=== PATIENT | female | born 1995 | race Caucasian/White ===

== ENCOUNTER 2024-06-19 07:34 | Inpatient (IN) | payer BC ==
[2024-06-19] MEDS ORDERED: hydrALAZINE 20 MG/ML VIAL SLOW IVP PRN ×2 (08:22→20:03)
[2024-06-19] MEDS ORDERED: Promethazine HCl 25 MG/ML VIAL IM PRN (08:22)
[2024-06-19] MEDS ORDERED: Ondansetron PF 4 MG/2 ML Vial IVP PRN ×2 (08:22→20:03)
[2024-06-19] MEDS ORDERED: Lidocaine 1% (PF) 30 ML VIAL SC PRN (08:22)
[2024-06-19 08:54] LABS: Hematocrit 36.7 % (34.9-44.5); Mean Corpuscular HGB CONC 32.7 g/dL (32.0-36.0); Mean Corpuscular Hemoglobin 28.3 pg (27.0-33.0); Mean Corpuscular Volume 86.6 fL (81.6-98.3); Mean Platelet Volume 11.1 fL (7.4-10.4); Platelet Count 222 10x3/uL (150-450); RBC Distribution Width 13.7 % (11.5-14.5); Red Blood Cell (RBC) Count 4.24 10x6/uL (3.90-5.03); White Blood Cell (WBC) Count 11.97 10x3/uL (3.5-10.5)
[2024-06-19] MEDS: Oxytocin 30 units/NS 500 ML 500 ML IV SCH (09:20)
[2024-06-19] MEDS ORDERED: VANCOMYCIN 1.5 GM, Admixture Fee 1 EACH in Sodium Chloride 0.9% 500 ML IVPB SCH (09:30)
[2024-06-19 09:40] LABS: HBsAg Index 0.26 S/CO (0-0.99); Hep B Surf Ag - L&D Non-Reactive S/CO (NonReactive)
[2024-06-19 09:42] LABS: Syphilis Antibody Nonreactive (Nonreactive); Syphilis Antibody Index 0.03 S/CO (<1.00 Non-Reactive)
[2024-06-19] MEDS: ADMIXTURE FEE IVPB SCH (10:30)
[2024-06-19] MEDS: SODIUM CHLORIDE IVPB SCH (10:30)
[2024-06-19] MEDS: VANCOMYCIN IVPB SCH (10:30)
[2024-06-19] MEDS: Ibuprofen 800 MG TAB PO PRN (18:04)
[2024-06-19] MEDS: HYDROcodone/Acetaminophen 5/325 mg Tablet PO PRN ×2 (18:05→22:04)
[2024-06-19] MEDS: fentaNYL/Ropivacaine Epidural 0 ML ONE (18:10)
[2024-06-19] MEDS ORDERED: Milk Of Magnesia 30 ML UDCUP PO PRN (20:03)
[2024-06-19] MEDS ORDERED: Lanolin Ointment 7 GM TUBE TOP PRN (20:03)
[2024-06-19] MEDS ORDERED: diphenhydrAMINE 25 MG CAP PO PRN (20:03)
[2024-06-19] MEDS ORDERED: Bisacodyl 10 MG SUPP PR PRN (20:03)
[2024-06-19] MEDS ORDERED: Oxytocin 30 units/NS 500 ML 500 ML IV SCH (20:03)
[2024-06-19] MEDS ORDERED: Preparation H Ointment 28 GM TUBE PR PRN (20:03)
[2024-06-19] MEDS: Docusate 100 MG CAP PO SCH (21:52)
[2024-06-20] MEDS: Ibuprofen 800 MG TAB PO SCH (02:07)
[2024-06-20] MEDS: Benzocaine-Menthol 82.5 ML CAN TOP PRN (08:22)
[2024-06-20] MEDS: Ferrous Sulfate 325 MG TAB PO SCH (08:22)
[2024-06-20] MEDS: Prenatal Vitamin 1 TAB PO SCH (08:22)
[2024-06-20] MEDS: HYDROcodone/Acetaminophen 5/325 mg Tablet PO PRN (08:23)
[2024-06-20] MEDS: Boostrix 0.5 ML (Tdap) VIAL (>/=7 yrs of age) IM ONE (19:28)
[2024-06-21 08:39] VITALS: BP 109/57; TEMP 98.4
== END 2024-06-21 10:30 | disposition home or self-care (01) | DRG 807 ==
LOC: CSHLD/OP 07:34 → CSHLD 08:45 → CSHPP 19:40
PROVIDERS: ADMIT Obstetrics & Gynecology; ATTEND Obstetrics & Gynecology
PROC: 10E0XZZ Delivery of Products of Conception, External Approach (ICD-10-PCS; principal; 2024-06-19)
PROC: 0KQM0ZZ Repair Perineum Muscle, Open Approach (ICD-10-PCS; 2024-06-19)
DX: O99.824 Streptococcus B carrier state complicating childbirth (principal); Z37.0 Single live birth; Z3A.39 39 weeks gestation of pregnancy; Z88.0 Allergy status to penicillin; Z91.018 Allergy to other foods; O70.1 Second degree perineal laceration during delivery
CPT/HCPCS: 36415; 85027; 86780; 86850; 86900; 86901; 87340; 99285; J2590; J7030